=== PATIENT | female | born 1945 | race Caucasian/White ===

== ENCOUNTER 2021-06-11 09:47 | Emergency (ER) | payer MEDICARE, OTHER ==
[2021-06-11] MEDS ORDERED: traMADol 50 MG Tab PO ONE (10:04)
[2021-06-11] MEDS ORDERED: Acetaminophen 500 MG Tab PO ONE (10:04)
[2021-06-11] MEDS ORDERED: Aspirin 81 MG Tab.Chew PO ONE (10:06)
[2021-06-11 10:10] VITALS: PULSE 65
[2021-06-11] MEDS ORDERED: Nitroglycerin 0.4 MG Tab.SL SL PRN (10:40)
[2021-06-11] MEDS ORDERED: Sodium Chloride 0.9% 1,000 ML IV SCH (10:45)
[2021-06-11] MEDS ORDERED: Ticagrelor 90 MG Tab PO ONE (10:49)
[2021-06-11 10:57] VITALS: BP 170/78
[2021-06-11] MEDS ORDERED: Nitroglycerin 2% Oint 1 GM UD Packet TOP ONE (11:35)
[2021-06-11] MEDS ORDERED: Morphine 2 MG/ML SYRINGE IVPUSH ONE ×2 (12:03→13:02)
[2021-06-11] MEDS ORDERED: Heparin Sodium 5,000 Units/ML Vial IVPUSH ONE (12:47)
[2021-06-11] MEDS ORDERED: Heparin Sodium/0.45% NaCl 25,000 UNITS/500 ML BAG IV SCH ×2 (13:00→13:15)
[2021-06-11] MEDS ORDERED: Nitroglycerin/D5W 25 MG/250 ML BOTTLE IV SCH (14:15)
== END 2021-06-11 14:30 ==
LOC: FB.ED 09:47
DX: I21.4 Non-ST elevation (NSTEMI) myocardial infarction (principal); E78.00 Pure hypercholesterolemia, unspecified; E10.9 Type 1 diabetes mellitus without complications; I10 Essential (primary) hypertension; I25.10 Atherosclerotic heart disease of native coronary artery without angina pectoris; Z88.0 Allergy status to penicillin; Z88.8 Allergy status to other drugs, medicaments and biological substances; Z79.82 Long term (current) use of aspirin; Z79.899 Other long term (current) drug therapy
CPT/HCPCS: 36415; 80048; 84484; 85027; 93005; 96365; 96375; 96376; 99285; A9270; J1644; J2270; J3490; J7030; 93010

== ENCOUNTER 2023-02-04 10:12 | Inpatient (IN) | payer MEDICARE, OTHER ==
[2023-02-04] MEDS ORDERED: Sodium Chloride 0.9% 10 ML Syringe FLUSH PRN (10:33)
[2023-02-04 11:06] LABS: BASOPHILS PERCENT AUTO 0.6 % (0.2-1.5); EOSINOPHILS ABSOLUTE AUTO 0.5 x10-3/uL (0.0-0.8); EOSINOPHILS PERCENT AUTO 7.1 % (0.6-8.1); HEMATOCRIT 34.2 % (34.2-48.2); HEMOGLOBIN 11.6 g/dL (11.4-15.5); LYMPHOCYTES ABSOLUTE AUTO 1.3 x10-3/uL (1.0-4.4); LYMPHOCYTES PERCENT AUTO 18.2 % (18.4-52.1); MEAN CORPUSCULAR HEMOGLOBIN 30.9 pg (23.9-33.9); MEAN CORPUSCULAR HGB CONC 33.8 g/dL (31.9-34.8); MEAN CORPUSCULAR VOLUME 91.4 fL (76.7-100.5); MEAN PLATELET VOLUME 9.9 fL (7.1-12.4); MONOCYTES ABSOLUTE AUTO 0.8 x10-3/uL (0.3-1.0); MONOCYTES PERCENT AUTO 11.3 % (4.4-15.7); NEUTROPHILS ABSOLUTE AUTO 4.6 x10-3/uL (1.5-6.3); NEUTROPHILS PERCENT AUTO 62.8 % (30.8-76.2); PLATELET COUNT,PLT 211 x10(3)uL (151-488); RED BLOOD CELL COUNT 3.74 x10(6)uL (3.60-5.20); RED CELL DISTRIBUTION WIDTH 14.4 % (12.3-16.5); WHITE BLOOD CELL COUNT,WBC 7.4 x10-3/uL (3.0-10.3)
[2023-02-04 11:08] LABS: BLOOD UREA NITROGEN,BUN 29 mg/dL (7-18); BUN/CREATININE RATIO 20.7 (9-20); CALCIUM 10.1 mg/dL (8.6-10.2); CARBON DIOXIDE,CO2 30 mmol/L (21-32); CHLORIDE,CL 99 mmol/L (100-110); CREATININE 1.4 mg/dL (0.55-1.02); ESTIMATED GFR 38 mL/min (>60); GLUCOSE RANDOM 190 mg/dL (80-116); POTASSIUM,K 3.6 mmol/L (3.5-5.3); SODIUM,NA 136 mmol/L (135-145)
[2023-02-04 11:14] LABS: A/G RATIO 0.8; ALANINE AMINOTRANSFERASE,ALT 75 U/L (12-36); ALBUMIN 3.4 g/dL (3.2-4.6); ALKALINE PHOSPHATASE 167 IU/L (56-112); ASPARTATE AMNIOTRANSFERASE,AST 58 IU/L (5-25); BILIRUBIN TOTAL 0.6 mg/dL (0.1-1.3); MAGNESIUM 1.7 mg/dL (1.8-2.5); PROTEIN TOTAL,TP 7.5 g/dL (6.0-8.0)
[2023-02-04 11:21] LABS: C-REACTIVE PROTEIN 0.2 mg/dL (<0.33)
[2023-02-04 11:38] LABS: BILIRUBIN,URINE NEGATIVE (NEGATIVE); GLUCOSE,URINE NORMAL (NORMAL); KETONES,URINE NEGATIVE (NEGATIVE); LEUKOCYTE ESTERASE,URINE SMALL (NEGATIVE); NITRITE,URINE NEGATIVE (NEGATIVE); OCCULT BLOOD,URINE NEGATIVE (NEGATIVE); PROTEIN,URINE NEGATIVE (NEGATIVE); UROBILINOGEN,URINE NORMAL (NEGATIVE)
[2023-02-04 11:43] LABS: APPEARANCE,URINE CLEAR (CLEAR); BACTERIA,URINE FEW (NS); COLOR,URINE YELLOW (YELLOW); RBC,URINE 0-5 (0-5); SQUAMOUS EPITHELIAL CELLS,UR FEW (NS,R,O); WBC,URINE 0-5 (0-5)
[2023-02-04] MEDS ORDERED: Sodium Chloride 0.9% 500 ML IV ONE (14:37)
[2023-02-04] MEDS ORDERED: traMADol 50 MG Tab PO ONE (14:38)
[2023-02-04] MEDS ORDERED: Iopamidol 755 Mg/ML 100 ML Bottle IV SCH (16:00)
[2023-02-04] MEDS ORDERED: Ondansetron 4 MG Tab.DIS PO PRN (19:19)
[2023-02-04] MEDS ORDERED: Rivaroxaban 15 MG Tab PO SCH (20:00)
[2023-02-04] MEDS ORDERED: Glucagon,Human Recombinant 1 MG Vial IM PRN (23:51)
[2023-02-04] MEDS ORDERED: 50% Dextrose in Water 50 ML Syringe IVPUSH PRN (23:51)
[2023-02-05] MEDS ORDERED: Insulin Lispro 100 Unit/ML 3 ML KwikPen SUBCUT ONE (00:11)
[2023-02-05] MEDS ORDERED: Insulin Glargine,Human Rec. Analog 100 Units/ML 3 ML Pen SUBCUT ONE (00:11)
[2023-02-05] MEDS: Insulin Lispro 100 Unit/ML 3 ML KwikPen SUBCUT SCH ×4 (00:12→17:47)
[2023-02-05] MEDS: Insulin Glargine,Human Rec. Analog 100 Units/ML 3 ML Pen SUBCUT SCH ×3 (00:13→20:55)
[2023-02-05] MEDS: traMADol 50 MG Tab PO PRN ×4 (00:15→20:54)
[2023-02-05 07:11] LABS: BASOPHILS ABSOLUTE AUTO 0.1 x10-3/uL (0.0-0.1); EOSINOPHILS ABSOLUTE AUTO 0.6 x10-3/uL (0.0-0.8); EOSINOPHILS PERCENT AUTO 8.3 % (0.6-8.1); HEMATOCRIT 32.2 % (34.2-48.2); HEMOGLOBIN 10.9 g/dL (11.4-15.5); LYMPHOCYTES ABSOLUTE AUTO 1.3 x10-3/uL (1.0-4.4); LYMPHOCYTES PERCENT AUTO 19.9 % (18.4-52.1); MEAN CORPUSCULAR HGB CONC 33.8 g/dL (31.9-34.8); MEAN CORPUSCULAR VOLUME 91.7 fL (76.7-100.5); MEAN PLATELET VOLUME 9.4 fL (7.1-12.4); MONOCYTES ABSOLUTE AUTO 0.9 x10-3/uL (0.3-1.0); NEUTROPHILS ABSOLUTE AUTO 3.9 x10-3/uL (1.5-6.3); NEUTROPHILS PERCENT AUTO 57.8 % (30.8-76.2); PLATELET COUNT,PLT 193 x10(3)uL (151-488); RED BLOOD CELL COUNT 3.51 x10(6)uL (3.60-5.20); RED CELL DISTRIBUTION WIDTH 14.6 % (12.3-16.5); WHITE BLOOD CELL COUNT,WBC 6.8 x10-3/uL (3.0-10.3)
[2023-02-05 07:22] LABS: A/G RATIO 0.8; ALANINE AMINOTRANSFERASE,ALT 66 U/L (12-36); ALBUMIN 2.9 g/dL (3.2-4.6); ALKALINE PHOSPHATASE 146 IU/L (56-112); ASPARTATE AMNIOTRANSFERASE,AST 46 IU/L (5-25); BILIRUBIN TOTAL 0.5 mg/dL (0.1-1.3); BLOOD UREA NITROGEN,BUN 26 mg/dL (7-18); BUN/CREATININE RATIO 17.3 (9-20); CALCIUM 9.6 mg/dL (8.6-10.2); CARBON DIOXIDE,CO2 34 mmol/L (21-32); CHLORIDE,CL 102 mmol/L (100-110); CREATININE 1.5 mg/dL (0.55-1.02); EST CRCL DRUG DOSING (CG) 24.05 mL/min; ESTIMATED GFR 35 mL/min (>60); GLUCOSE RANDOM 97 mg/dL (80-116); POTASSIUM,K 3.7 mmol/L (3.5-5.3); PROTEIN TOTAL,TP 6.6 g/dL (6.0-8.0); SODIUM,NA 139 mmol/L (135-145)
[2023-02-05] MEDS ORDERED: 50% Dextrose in Water 50 ML Syringe IVPUSH PRN (09:14)
[2023-02-05] MEDS ORDERED: Nitroglycerin 0.4 MG Tab.SL SL PRN (09:14)
[2023-02-05] MEDS ORDERED: Glucagon,Human Recombinant 1 MG Vial IM PRN (09:14)
[2023-02-05] MEDS ORDERED: ALPHA LIPOIC ACID 600 MG PO SCH (09:15)
[2023-02-05] MEDS: Carvedilol 3.125 MG Tab PO SCH ×2 (10:15→21:20)
[2023-02-05] MEDS: Cyanocobalamin (Vitamin B12) 100 MCG Tab PO SCH (10:16)
[2023-02-05] MEDS: Clopidogrel 75 MG Tab PO SCH (10:16)
[2023-02-05] MEDS: Furosemide 40 MG Tab PO SCH (10:16)
[2023-02-05] MEDS: Magnesium Oxide 400 MG Tab PO SCH (10:17)
[2023-02-05] MEDS: Levothyroxine 112 MCG Tab PO SCH (10:17)
[2023-02-05] MEDS: Aspirin 81 MG Tab.EC PO SCH (10:18)
[2023-02-05] MEDS: Isosorbide Mononitrate 30 MG Tab.ER PO SCH (10:18)
[2023-02-05] MEDS: Vitamin B6-pyridOXINE 100 MG Tab PO SCH (10:37)
[2023-02-05] MEDS: Nitrofurantoin Monohydrate/Macrocrystalline 100 MG Cap PO SCH ×2 (10:38→20:53)
[2023-02-05] MEDS ORDERED: Insulin Lispro 100 Unit/ML 3 ML KwikPen SUBCUT SCH (12:00)
[2023-02-05] MEDS: Cholecalciferol (Vitamin D3) 25 MCG Tab PO SCH (17:47)
[2023-02-05] MEDS: Enoxaparin 30 MG/0.3 ML Syringe SUBCUT SCH (20:45)
[2023-02-05] MEDS: Rosuvastatin 20 MG Tab PO SCH (20:53)
[2023-02-05] MEDS ORDERED: Insulin Glargine,Human Rec. Analog 100 Units/ML 3 ML Pen SUBCUT SCH (21:00)
[2023-02-05] MEDS: Losartan 25 MG Tab PO SCH (21:20)
[2023-02-06] MEDS: Levothyroxine 112 MCG Tab PO SCH (05:47)
[2023-02-06] MEDS: Insulin Lispro 100 Unit/ML 3 ML KwikPen SUBCUT SCH ×3 (07:49→18:15)
[2023-02-06] MEDS: Carvedilol 3.125 MG Tab PO SCH ×2 (08:52→20:52)
[2023-02-06] MEDS: Aspirin 81 MG Tab.EC PO SCH (08:53)
[2023-02-06] MEDS: Isosorbide Mononitrate 30 MG Tab.ER PO SCH (08:53)
[2023-02-06] MEDS: Furosemide 40 MG Tab PO SCH (08:53)
[2023-02-06] MEDS: Cyanocobalamin (Vitamin B12) 100 MCG Tab PO SCH (08:54)
[2023-02-06] MEDS: Vitamin B6-pyridOXINE 100 MG Tab PO SCH (08:54)
[2023-02-06] MEDS: Magnesium Oxide 400 MG Tab PO SCH (08:54)
[2023-02-06] MEDS: Clopidogrel 75 MG Tab PO SCH (08:54)
[2023-02-06] MEDS: Insulin Glargine,Human Rec. Analog 100 Units/ML 3 ML Pen SUBCUT SCH ×2 (09:03→20:53)
[2023-02-06] MEDS: Nitrofurantoin Monohydrate/Macrocrystalline 100 MG Cap PO SCH ×2 (09:05→20:47)
[2023-02-06] MEDS: traMADol 50 MG Tab PO PRN (10:16)
[2023-02-06] MEDS ORDERED: Magnesium Hydroxide 400 MG/5 ML Susp 30 ML Cup PO PRN (14:29)
[2023-02-06] MEDS ORDERED: Polyethylene Glycol 3350 Powder 17 GM Packet PO PRN (16:51)
[2023-02-06] MEDS ORDERED: traMADol 50 MG Tab PO SCH (17:00)
[2023-02-06] MEDS: Cholecalciferol (Vitamin D3) 25 MCG Tab PO SCH (18:18)
[2023-02-06] MEDS ORDERED: Acetaminophen/Codeine 300-30 MG Tab PO PRN (18:55)
[2023-02-06] MEDS: Enoxaparin 30 MG/0.3 ML Syringe SUBCUT SCH (20:47)
[2023-02-06] MEDS: Rosuvastatin 20 MG Tab PO SCH (20:48)
[2023-02-06] MEDS: Losartan 25 MG Tab PO SCH (20:52)
[2023-02-07] MEDS ORDERED: Levothyroxine 112 MCG Tab PO SCH (06:00)
[2023-02-07] MEDS: Insulin Lispro 100 Unit/ML 3 ML KwikPen SUBCUT SCH ×3 (09:42→18:12)
[2023-02-07] MEDS: Furosemide 40 MG Tab PO SCH (09:43)
[2023-02-07] MEDS: Carvedilol 3.125 MG Tab PO SCH (09:43)
[2023-02-07] MEDS: Cyanocobalamin (Vitamin B12) 100 MCG Tab PO SCH (09:47)
[2023-02-07] MEDS: Vitamin B6-pyridOXINE 100 MG Tab PO SCH (09:47)
[2023-02-07] MEDS: Insulin Glargine,Human Rec. Analog 100 Units/ML 3 ML Pen SUBCUT SCH ×2 (09:47→20:09)
[2023-02-07] MEDS: Magnesium Oxide 400 MG Tab PO SCH (09:47)
[2023-02-07] MEDS: Clopidogrel 75 MG Tab PO SCH (09:47)
[2023-02-07] MEDS: Isosorbide Mononitrate 30 MG Tab.ER PO SCH (09:48)
[2023-02-07] MEDS: Aspirin 81 MG Tab.EC PO SCH (09:49)
[2023-02-07] MEDS: Acetaminophen 500 MG Tab PO SCH ×3 (10:05→20:13)
[2023-02-07] MEDS: traMADol 50 MG Tab PO PRN (13:10)
[2023-02-07] MEDS: Cholecalciferol (Vitamin D3) 25 MCG Tab PO SCH (18:13)
[2023-02-07] MEDS: Losartan 25 MG Tab PO SCH (20:13)
[2023-02-07] MEDS: Rosuvastatin 20 MG Tab PO SCH (20:13)
[2023-02-07] MEDS: Enoxaparin 30 MG/0.3 ML Syringe SUBCUT SCH (20:13)
[2023-02-08] MEDS: Levothyroxine 112 MCG Tab PO SCH (06:58)
[2023-02-08] MEDS: Insulin Lispro 100 Unit/ML 3 ML KwikPen SUBCUT SCH ×3 (09:18→17:50)
[2023-02-08] MEDS: Vitamin B6-pyridOXINE 100 MG Tab PO SCH (09:24)
[2023-02-08] MEDS: Acetaminophen 500 MG Tab PO SCH ×3 (09:24→20:12)
[2023-02-08] MEDS: Cyanocobalamin (Vitamin B12) 100 MCG Tab PO SCH (09:24)
[2023-02-08] MEDS: Furosemide 40 MG Tab PO SCH (09:25)
[2023-02-08] MEDS: Clopidogrel 75 MG Tab PO SCH (09:25)
[2023-02-08] MEDS: Magnesium Oxide 400 MG Tab PO SCH (09:25)
[2023-02-08] MEDS: Insulin Glargine,Human Rec. Analog 100 Units/ML 3 ML Pen SUBCUT SCH ×2 (09:26→20:08)
[2023-02-08] MEDS: Aspirin 81 MG Tab.EC PO SCH (09:27)
[2023-02-08] MEDS: Carvedilol 3.125 MG Tab PO SCH ×2 (09:27→20:06)
[2023-02-08] MEDS: Isosorbide Mononitrate 30 MG Tab.ER PO SCH (09:27)
[2023-02-08] MEDS: traMADol 50 MG Tab PO PRN (09:29)
[2023-02-08] MEDS: Cholecalciferol (Vitamin D3) 25 MCG Tab PO SCH (17:51)
[2023-02-08] MEDS: Losartan 25 MG Tab PO SCH (20:06)
[2023-02-08] MEDS: Enoxaparin 30 MG/0.3 ML Syringe SUBCUT SCH (20:06)
[2023-02-08] MEDS: Rosuvastatin 20 MG Tab PO SCH (20:07)
[2023-02-09] MEDS: Levothyroxine 112 MCG Tab PO SCH (06:16)
[2023-02-09] MEDS: traMADol 50 MG Tab PO PRN (06:22)
[2023-02-09] MEDS: Insulin Lispro 100 Unit/ML 3 ML KwikPen SUBCUT SCH (08:25)
[2023-02-09] MEDS: Insulin Glargine,Human Rec. Analog 100 Units/ML 3 ML Pen SUBCUT SCH (08:26)
[2023-02-09] MEDS: Vitamin B6-pyridOXINE 100 MG Tab PO SCH (08:27)
[2023-02-09] MEDS: Aspirin 81 MG Tab.EC PO SCH (08:27)
[2023-02-09] MEDS: Cyanocobalamin (Vitamin B12) 100 MCG Tab PO SCH (08:27)
[2023-02-09] MEDS: Clopidogrel 75 MG Tab PO SCH (08:28)
[2023-02-09] MEDS: Carvedilol 3.125 MG Tab PO SCH (08:28)
[2023-02-09] MEDS: Magnesium Oxide 400 MG Tab PO SCH (08:28)
[2023-02-09] MEDS: Isosorbide Mononitrate 30 MG Tab.ER PO SCH (08:28)
[2023-02-09] MEDS: Furosemide 40 MG Tab PO SCH (08:28)
[2023-02-09 08:30] VITALS: BP 132/44; PULSE 67
[2023-02-09] MEDS: Acetaminophen 500 MG Tab PO SCH (08:45)
== END 2023-02-09 09:00 | disposition swing bed (61) | DRG 556 ==
LOC: FB.ED 10:12 → FB.MS 18:04 → OBSVTOIN 19:19
PROVIDERS: ADMIT Family Medicine; ATTEND Family Medicine
DX: M25.571 Pain in right ankle and joints of right foot (principal); N39.0 Urinary tract infection, site not specified; M79.604 Pain in right leg; Z51.5 Encounter for palliative care; R53.1 Weakness; Z74.1 Need for assistance with personal care; Z74.09 Other reduced mobility; I25.10 Atherosclerotic heart disease of native coronary artery without angina pectoris; M79.89 Other specified soft tissue disorders; R06.09 Other forms of dyspnea; R11.2 Nausea with vomiting, unspecified; M48.50XD Collapsed vertebra, not elsewhere classified, site unspecified, subsequent encounter for fracture with routine healing; M48.00 Spinal stenosis, site unspecified; Z88.0 Allergy status to penicillin; Z88.8 Allergy status to other drugs, medicaments and biological substances; Z91.012 Allergy to eggs; E11.9 Type 2 diabetes mellitus without complications; I10 Essential (primary) hypertension; E78.00 Pure hypercholesterolemia, unspecified; Z79.02 Long term (current) use of antithrombotics/antiplatelets; Z85.828 Personal history of other malignant neoplasm of skin; Z90.49 Acquired absence of other specified parts of digestive tract; Z90.710 Acquired absence of both cervix and uterus; Z79.4 Long term (current) use of insulin; Z79.82 Long term (current) use of aspirin; Z79.899 Other long term (current) drug therapy
CPT/HCPCS: 36415; 71275; 73590-RT; 73610-RT; 73630-RT; 80053; 81001; 82947; 83735; 83880; 84484; 85025; 85379; 86140; 93005; 93010; 93970; 97162-GP; 97165-GO; 99222; 99232; 99238; 99285; A9270-GY; J1650; J1815; J1815-GY; J3490; J7040; Q0162; Q9967

== ENCOUNTER 2023-02-09 09:00 | Inpatient (IN) | payer MEDICARE, OTHER ==
[2023-02-09] MEDS ORDERED: 50% Dextrose in Water 50 ML Syringe IVPUSH PRN (09:22)
[2023-02-09] MEDS ORDERED: Nitroglycerin 0.4 MG Tab.SL SL PRN ×2 (09:22→20:28)
[2023-02-09] MEDS ORDERED: Glucagon,Human Recombinant 1 MG Vial IM PRN ×2 (09:22)
[2023-02-09] MEDS ORDERED: Iopamidol 755 Mg/ML 100 ML Bottle IV SCH (09:30)
[2023-02-09] MEDS: Insulin Lispro 100 Unit/ML 3 ML KwikPen SUBCUT SCH ×2 (11:45→18:06)
[2023-02-09] MEDS: Acetaminophen 500 MG Tab PO SCH ×2 (13:21→21:03)
[2023-02-09] MEDS: Cholecalciferol (Vitamin D3) 25 MCG Tab PO SCH (18:06)
[2023-02-09] MEDS: Sodium Chloride 0.9% 10 ML Syringe FLUSH PRN (20:15)
[2023-02-09] MEDS ORDERED: Aspirin 81 MG Tab.Chew PO SCH (20:30)
[2023-02-09 20:43] LABS: BASOPHILS ABSOLUTE AUTO 0.1 x10-3/uL (0.0-0.1); BASOPHILS PERCENT AUTO 1.1 % (0.2-1.5); EOSINOPHILS ABSOLUTE AUTO 0.7 x10-3/uL (0.0-0.8); EOSINOPHILS PERCENT AUTO 12.1 % (0.6-8.1); HEMATOCRIT 30.5 % (34.2-48.2); HEMOGLOBIN 10.3 g/dL (11.4-15.5); LYMPHOCYTES ABSOLUTE AUTO 1.5 x10-3/uL (1.0-4.4); LYMPHOCYTES PERCENT AUTO 25.3 % (18.4-52.1); MEAN CORPUSCULAR HEMOGLOBIN 31.1 pg (23.9-33.9); MEAN CORPUSCULAR HGB CONC 33.7 g/dL (31.9-34.8); MEAN CORPUSCULAR VOLUME 92.1 fL (76.7-100.5); MEAN PLATELET VOLUME 9.8 fL (7.1-12.4); MONOCYTES ABSOLUTE AUTO 0.6 x10-3/uL (0.3-1.0); MONOCYTES PERCENT AUTO 10.4 % (4.4-15.7); NEUTROPHILS PERCENT AUTO 51.1 % (30.8-76.2); PLATELET COUNT,PLT 164 x10(3)uL (151-488); RED BLOOD CELL COUNT 3.31 x10(6)uL (3.60-5.20); RED CELL DISTRIBUTION WIDTH 14.4 % (12.3-16.5); WHITE BLOOD CELL COUNT,WBC 5.9 x10-3/uL (3.0-10.3)
[2023-02-09] MEDS ORDERED: Pantoprazole 40 MG Tab.CR PO STA (20:47)
[2023-02-09 20:58] LABS: INR 1.03 (1.00-1.24); PROTHROMBIN TIME 10.6 sec (9.0-11.1); PTT,PARTIAL THROMBOPLSTIN TIME 27.4 SECONDS (24.4-33.2)
[2023-02-09] MEDS: Carvedilol 3.125 MG Tab PO SCH (20:58)
[2023-02-09] MEDS: Rosuvastatin 20 MG Tab PO SCH (20:58)
[2023-02-09] MEDS: Insulin Glargine,Human Rec. Analog 100 Units/ML 3 ML Pen SUBCUT SCH (20:59)
[2023-02-09 21:01] LABS: A/G RATIO 0.8; ALANINE AMINOTRANSFERASE,ALT 45 U/L (12-36); ALBUMIN 2.8 g/dL (3.2-4.6); ALKALINE PHOSPHATASE 165 IU/L (56-112); ASPARTATE AMNIOTRANSFERASE,AST 28 IU/L (5-25); BILIRUBIN TOTAL 0.4 mg/dL (0.1-1.3); BLOOD UREA NITROGEN,BUN 43 mg/dL (7-18); BUN/CREATININE RATIO 19.5 (9-20); CALCIUM 9.2 mg/dL (8.6-10.2); CARBON DIOXIDE,CO2 34 mmol/L (21-32); CHLORIDE,CL 96 mmol/L (100-110); ESTIMATED GFR 22 mL/min (>60); GLUCOSE RANDOM 319 mg/dL (80-116); POTASSIUM,K 4.6 mmol/L (3.5-5.3); PROTEIN TOTAL,TP 6.5 g/dL (6.0-8.0); SODIUM,NA 132 mmol/L (135-145)
[2023-02-09 21:07] LABS: CREATININE 2.2 mg/dL (0.55-1.02)
[2023-02-09] MEDS: traMADol 50 MG Tab PO PRN (21:14)
[2023-02-09] MEDS ORDERED: Sodium Chloride 0.9% 1,000 ML IV ONE (21:36)
[2023-02-10] MEDS: traMADol 50 MG Tab PO PRN ×2 (04:37→22:54)
[2023-02-10] MEDS: Pantoprazole 40 MG Tab.CR PO SCH (05:04)
[2023-02-10] MEDS: Levothyroxine 112 MCG Tab PO SCH (05:04)
[2023-02-10] MEDS: Insulin Lispro 100 Unit/ML 3 ML KwikPen SUBCUT SCH ×3 (08:06→17:56)
[2023-02-10] MEDS: Insulin Glargine,Human Rec. Analog 100 Units/ML 3 ML Pen SUBCUT SCH ×2 (08:07→20:36)
[2023-02-10] MEDS: Magnesium Oxide 400 MG Tab PO SCH (08:14)
[2023-02-10] MEDS: Carvedilol 3.125 MG Tab PO SCH ×2 (08:14→20:41)
[2023-02-10] MEDS: Acetaminophen 500 MG Tab PO SCH ×3 (08:15→20:41)
[2023-02-10] MEDS: Vitamin B6-pyridOXINE 100 MG Tab PO SCH (08:15)
[2023-02-10] MEDS: Clopidogrel 75 MG Tab PO SCH (08:15)
[2023-02-10] MEDS: Isosorbide Mononitrate 30 MG Tab.ER PO SCH (08:16)
[2023-02-10] MEDS ORDERED: Furosemide 40 MG Tab PO SCH (09:00)
[2023-02-10] MEDS ORDERED: ALPHA LIPOIC ACID 600 MG PO SCH (09:00)
[2023-02-10] MEDS ORDERED: Aspirin 81 MG Tab.EC PO SCH (09:00)
[2023-02-10] MEDS: Gabapentin 100 MG Cap PO SCH ×3 (10:52→20:44)
[2023-02-10] MEDS: Cholecalciferol (Vitamin D3) 25 MCG Tab PO SCH (17:55)
[2023-02-10] MEDS: Rosuvastatin 20 MG Tab PO SCH (20:41)
[2023-02-10] MEDS: Losartan 25 MG Tab PO SCH (22:00)
[2023-02-11] MEDS: Levothyroxine 112 MCG Tab PO SCH (05:45)
[2023-02-11] MEDS: Pantoprazole 40 MG Tab.CR PO SCH (05:45)
[2023-02-11 06:59] LABS: A/G RATIO 0.7; ALANINE AMINOTRANSFERASE,ALT 42 U/L (12-36); ALBUMIN 2.6 g/dL (3.2-4.6); ALKALINE PHOSPHATASE 149 IU/L (56-112); ASPARTATE AMNIOTRANSFERASE,AST 29 IU/L (5-25); BILIRUBIN TOTAL 0.4 mg/dL (0.1-1.3); BLOOD UREA NITROGEN,BUN 32 mg/dL (7-18); CALCIUM 9.2 mg/dL (8.6-10.2); CARBON DIOXIDE,CO2 32 mmol/L (21-32); CHLORIDE,CL 103 mmol/L (100-110); CREATININE 1.6 mg/dL (0.55-1.02); EST CRCL DRUG DOSING (CG) 22.55 mL/min; ESTIMATED GFR 33 mL/min (>60); GLUCOSE RANDOM 171 mg/dL (80-116); POTASSIUM,K 4.5 mmol/L (3.5-5.3); PROTEIN TOTAL,TP 6.2 g/dL (6.0-8.0); SODIUM,NA 137 mmol/L (135-145)
[2023-02-11] MEDS: Magnesium Oxide 400 MG Tab PO SCH (08:13)
[2023-02-11] MEDS: Carvedilol 3.125 MG Tab PO SCH ×2 (08:13→20:25)
[2023-02-11] MEDS: Isosorbide Mononitrate 30 MG Tab.ER PO SCH (08:13)
[2023-02-11] MEDS: Acetaminophen 500 MG Tab PO SCH ×3 (08:13→20:24)
[2023-02-11] MEDS: Clopidogrel 75 MG Tab PO SCH (08:13)
[2023-02-11] MEDS: Gabapentin 100 MG Cap PO SCH ×3 (08:13→20:25)
[2023-02-11] MEDS: Insulin Lispro 100 Unit/ML 3 ML KwikPen SUBCUT SCH ×3 (08:14→18:01)
[2023-02-11] MEDS: Vitamin B6-pyridOXINE 100 MG Tab PO SCH (08:14)
[2023-02-11] MEDS: Insulin Glargine,Human Rec. Analog 100 Units/ML 3 ML Pen SUBCUT SCH ×2 (08:15→20:25)
[2023-02-11] MEDS: Sodium Chloride 0.9% 10 ML Syringe FLUSH PRN (08:26)
[2023-02-11] MEDS: Cholecalciferol (Vitamin D3) 25 MCG Tab PO SCH (18:02)
[2023-02-11] MEDS: Rosuvastatin 20 MG Tab PO SCH (20:24)
[2023-02-11] MEDS: Losartan 25 MG Tab PO SCH (20:24)
[2023-02-12] MEDS: Levothyroxine 112 MCG Tab PO SCH (06:15)
[2023-02-12] MEDS: Pantoprazole 40 MG Tab.CR PO SCH (06:16)
[2023-02-12] MEDS: traMADol 50 MG Tab PO PRN (06:21)
[2023-02-12] MEDS: Insulin Lispro 100 Unit/ML 3 ML KwikPen SUBCUT SCH ×3 (08:30→17:58)
[2023-02-12] MEDS: Acetaminophen 500 MG Tab PO SCH ×3 (08:31→21:25)
[2023-02-12] MEDS: Clopidogrel 75 MG Tab PO SCH (08:33)
[2023-02-12] MEDS: Vitamin B6-pyridOXINE 100 MG Tab PO SCH (08:33)
[2023-02-12] MEDS: Insulin Glargine,Human Rec. Analog 100 Units/ML 3 ML Pen SUBCUT SCH ×2 (08:33→21:28)
[2023-02-12] MEDS: Magnesium Oxide 400 MG Tab PO SCH (08:33)
[2023-02-12] MEDS ORDERED: Furosemide 20 MG Tab PO SCH (09:00)
[2023-02-12] MEDS: Isosorbide Mononitrate 30 MG Tab.ER PO SCH (10:04)
[2023-02-12] MEDS: Carvedilol 3.125 MG Tab PO SCH ×2 (10:05→21:27)
[2023-02-12] MEDS: Furosemide 40 MG Tab PO SCH (10:32)
[2023-02-12] MEDS: Gabapentin 100 MG Cap PO SCH (10:35)
[2023-02-12] MEDS: Cholecalciferol (Vitamin D3) 25 MCG Tab PO SCH (18:50)
[2023-02-12] MEDS: Rosuvastatin 20 MG Tab PO SCH (21:27)
[2023-02-12] MEDS: Losartan 25 MG Tab PO SCH (21:27)
[2023-02-13] MEDS: traMADol 50 MG Tab PO PRN (02:23)
[2023-02-13] MEDS: Levothyroxine 112 MCG Tab PO SCH (06:27)
[2023-02-13] MEDS: Pantoprazole 40 MG Tab.CR PO SCH (06:27)
[2023-02-13] MEDS: Insulin Lispro 100 Unit/ML 3 ML KwikPen SUBCUT SCH ×3 (09:11→18:03)
[2023-02-13] MEDS: Insulin Glargine,Human Rec. Analog 100 Units/ML 3 ML Pen SUBCUT SCH ×2 (09:13→20:31)
[2023-02-13] MEDS: Vitamin B6-pyridOXINE 100 MG Tab PO SCH (09:14)
[2023-02-13] MEDS: Magnesium Oxide 400 MG Tab PO SCH (09:14)
[2023-02-13] MEDS: Clopidogrel 75 MG Tab PO SCH (09:14)
[2023-02-13] MEDS: Isosorbide Mononitrate 30 MG Tab.ER PO SCH (09:14)
[2023-02-13] MEDS: Acetaminophen 500 MG Tab PO SCH ×3 (09:15→20:35)
[2023-02-13] MEDS: Carvedilol 3.125 MG Tab PO SCH ×2 (09:15→20:34)
[2023-02-13] MEDS: Furosemide 40 MG Tab PO SCH (09:27)
[2023-02-13] MEDS: Cholecalciferol (Vitamin D3) 25 MCG Tab PO SCH (18:04)
[2023-02-13] MEDS: Rosuvastatin 20 MG Tab PO SCH (20:35)
[2023-02-13] MEDS: Losartan 25 MG Tab PO SCH (20:35)
[2023-02-14] MEDS: traMADol 50 MG Tab PO PRN ×2 (04:06→21:14)
[2023-02-14] MEDS: Levothyroxine 112 MCG Tab PO SCH (05:06)
[2023-02-14] MEDS: Pantoprazole 40 MG Tab.CR PO SCH (05:06)
[2023-02-14] MEDS: Insulin Glargine,Human Rec. Analog 100 Units/ML 3 ML Pen SUBCUT SCH ×2 (09:01→21:15)
[2023-02-14] MEDS: Insulin Lispro 100 Unit/ML 3 ML KwikPen SUBCUT SCH ×3 (09:02→18:36)
[2023-02-14] MEDS: Acetaminophen 500 MG Tab PO SCH ×3 (09:04→21:12)
[2023-02-14] MEDS: Clopidogrel 75 MG Tab PO SCH (09:04)
[2023-02-14] MEDS: Carvedilol 3.125 MG Tab PO SCH ×2 (09:05→21:11)
[2023-02-14] MEDS: Furosemide 40 MG Tab PO SCH (09:05)
[2023-02-14] MEDS: Vitamin B6-pyridOXINE 100 MG Tab PO SCH (09:05)
[2023-02-14] MEDS: Isosorbide Mononitrate 30 MG Tab.ER PO SCH (09:06)
[2023-02-14] MEDS: Magnesium Oxide 400 MG Tab PO SCH (09:06)
[2023-02-14] MEDS: Cholecalciferol (Vitamin D3) 25 MCG Tab PO SCH (18:39)
[2023-02-14] MEDS ORDERED: 50% Dextrose in Water 50 ML Syringe IVPUSH PRN (20:16)
[2023-02-14] MEDS ORDERED: Glucagon,Human Recombinant 1 MG Vial IM PRN (20:16)
[2023-02-14] MEDS: Losartan 25 MG Tab PO SCH (21:12)
[2023-02-14] MEDS: Rosuvastatin 20 MG Tab PO SCH (21:12)
[2023-02-15] MEDS: Pantoprazole 40 MG Tab.CR PO SCH (06:26)
[2023-02-15] MEDS: Levothyroxine 112 MCG Tab PO SCH (06:26)
[2023-02-15] MEDS: Insulin Lispro 100 Unit/ML 3 ML KwikPen SUBCUT SCH ×3 (08:05→18:36)
[2023-02-15] MEDS: Insulin Glargine,Human Rec. Analog 100 Units/ML 3 ML Pen SUBCUT SCH ×2 (08:05→20:20)
[2023-02-15] MEDS: Isosorbide Mononitrate 30 MG Tab.ER PO SCH (08:09)
[2023-02-15] MEDS: Carvedilol 3.125 MG Tab PO SCH ×2 (08:09→20:17)
[2023-02-15] MEDS: Magnesium Oxide 400 MG Tab PO SCH (08:10)
[2023-02-15] MEDS: Furosemide 40 MG Tab PO SCH (08:10)
[2023-02-15] MEDS: Vitamin B6-pyridOXINE 100 MG Tab PO SCH (08:11)
[2023-02-15] MEDS: Clopidogrel 75 MG Tab PO SCH (08:11)
[2023-02-15] MEDS: Acetaminophen 500 MG Tab PO SCH ×3 (08:11→20:18)
[2023-02-15] MEDS: Cholecalciferol (Vitamin D3) 25 MCG Tab PO SCH (18:40)
[2023-02-15] MEDS: Losartan 25 MG Tab PO SCH (20:18)
[2023-02-15] MEDS: Rosuvastatin 20 MG Tab PO SCH (20:18)
[2023-02-15] MEDS: traMADol 50 MG Tab PO PRN (22:13)
[2023-02-16] MEDS: Levothyroxine 112 MCG Tab PO SCH (05:37)
[2023-02-16] MEDS: Pantoprazole 40 MG Tab.CR PO SCH (05:37)
[2023-02-16] MEDS: Insulin Lispro 100 Unit/ML 3 ML KwikPen SUBCUT SCH ×3 (08:30→18:03)
[2023-02-16] MEDS: Acetaminophen 500 MG Tab PO SCH ×3 (09:24→21:32)
[2023-02-16] MEDS: Isosorbide Mononitrate 30 MG Tab.ER PO SCH (09:24)
[2023-02-16] MEDS: Clopidogrel 75 MG Tab PO SCH (09:25)
[2023-02-16] MEDS: Vitamin B6-pyridOXINE 100 MG Tab PO SCH (09:25)
[2023-02-16] MEDS: Magnesium Oxide 400 MG Tab PO SCH (09:25)
[2023-02-16] MEDS: Furosemide 40 MG Tab PO SCH (09:25)
[2023-02-16] MEDS: Carvedilol 3.125 MG Tab PO SCH ×2 (09:26→21:32)
[2023-02-16] MEDS: Insulin Glargine,Human Rec. Analog 100 Units/ML 3 ML Pen SUBCUT SCH ×2 (09:27→21:39)
[2023-02-16] MEDS ORDERED: Bupivacaine 0.5% 10 ML SDV INJECT ONE (13:50)
[2023-02-16] MEDS ORDERED: Triamcinolone Acetonide 40 MG/ML 1 ML SDV IBURSA ONE (13:52)
[2023-02-16] MEDS ORDERED: Bupivacaine 0.5% 30 ML SDV INJECT ONE (14:00)
[2023-02-16] MEDS: Cholecalciferol (Vitamin D3) 25 MCG Tab PO SCH (18:05)
[2023-02-16] MEDS: Losartan 25 MG Tab PO SCH (21:32)
[2023-02-16] MEDS: Rosuvastatin 20 MG Tab PO SCH (21:32)
[2023-02-16] MEDS: traMADol 50 MG Tab PO PRN (23:10)
[2023-02-17] MEDS: Pantoprazole 40 MG Tab.CR PO SCH (06:22)
[2023-02-17] MEDS: Levothyroxine 112 MCG Tab PO SCH (06:22)
[2023-02-17] MEDS: traMADol 50 MG Tab PO PRN ×2 (08:09→20:07)
[2023-02-17] MEDS: Acetaminophen 500 MG Tab PO SCH ×3 (08:10→20:05)
[2023-02-17] MEDS: Insulin Lispro 100 Unit/ML 3 ML KwikPen SUBCUT SCH ×3 (08:10→17:48)
[2023-02-17] MEDS: Carvedilol 3.125 MG Tab PO SCH ×2 (08:10→20:05)
[2023-02-17] MEDS: Magnesium Oxide 400 MG Tab PO SCH (08:11)
[2023-02-17] MEDS: Furosemide 40 MG Tab PO SCH (08:11)
[2023-02-17] MEDS: Clopidogrel 75 MG Tab PO SCH (08:11)
[2023-02-17] MEDS: Isosorbide Mononitrate 30 MG Tab.ER PO SCH (08:11)
[2023-02-17] MEDS: Insulin Glargine,Human Rec. Analog 100 Units/ML 3 ML Pen SUBCUT SCH ×2 (08:12→20:15)
[2023-02-17] MEDS: Vitamin B6-pyridOXINE 100 MG Tab PO SCH (08:12)
[2023-02-17] MEDS: Cholecalciferol (Vitamin D3) 25 MCG Tab PO SCH (17:56)
[2023-02-17] MEDS: Losartan 25 MG Tab PO SCH (20:04)
[2023-02-17] MEDS: Rosuvastatin 20 MG Tab PO SCH (20:04)
[2023-02-18] MEDS: Pantoprazole 40 MG Tab.CR PO SCH (06:00)
[2023-02-18] MEDS: Levothyroxine 112 MCG Tab PO SCH (06:00)
[2023-02-18] MEDS: Insulin Lispro 100 Unit/ML 3 ML KwikPen SUBCUT SCH ×3 (07:50→18:02)
[2023-02-18] MEDS: traMADol 50 MG Tab PO PRN (08:50)
[2023-02-18] MEDS: Carvedilol 3.125 MG Tab PO SCH ×2 (09:35→20:14)
[2023-02-18] MEDS: Insulin Glargine,Human Rec. Analog 100 Units/ML 3 ML Pen SUBCUT SCH ×2 (09:37→20:17)
[2023-02-18] MEDS: Isosorbide Mononitrate 30 MG Tab.ER PO SCH (09:37)
[2023-02-18] MEDS: Furosemide 40 MG Tab PO SCH (09:38)
[2023-02-18] MEDS: Acetaminophen 500 MG Tab PO SCH ×3 (09:39→20:15)
[2023-02-18] MEDS: Magnesium Oxide 400 MG Tab PO SCH (09:39)
[2023-02-18] MEDS: Clopidogrel 75 MG Tab PO SCH (09:39)
[2023-02-18] MEDS: Vitamin B6-pyridOXINE 100 MG Tab PO SCH (09:41)
[2023-02-18] MEDS: Cholecalciferol (Vitamin D3) 25 MCG Tab PO SCH (18:01)
[2023-02-18] MEDS: Losartan 25 MG Tab PO SCH (20:15)
[2023-02-18] MEDS: Rosuvastatin 20 MG Tab PO SCH (20:15)
[2023-02-19] MEDS: Levothyroxine 112 MCG Tab PO SCH (06:10)
[2023-02-19] MEDS: Pantoprazole 40 MG Tab.CR PO SCH (06:10)
[2023-02-19] MEDS: traMADol 50 MG Tab PO PRN ×2 (06:16→20:55)
[2023-02-19] MEDS: Clopidogrel 75 MG Tab PO SCH (08:04)
[2023-02-19] MEDS: Carvedilol 3.125 MG Tab PO SCH ×2 (08:04→20:56)
[2023-02-19] MEDS: Isosorbide Mononitrate 30 MG Tab.ER PO SCH (08:05)
[2023-02-19] MEDS: Insulin Glargine,Human Rec. Analog 100 Units/ML 3 ML Pen SUBCUT SCH ×2 (08:05→20:56)
[2023-02-19] MEDS: Insulin Lispro 100 Unit/ML 3 ML KwikPen SUBCUT SCH ×3 (08:08→17:45)
[2023-02-19] MEDS: Acetaminophen 500 MG Tab PO SCH ×3 (08:09→20:53)
[2023-02-19] MEDS: Furosemide 40 MG Tab PO SCH (08:09)
[2023-02-19] MEDS: Magnesium Oxide 400 MG Tab PO SCH (08:09)
[2023-02-19] MEDS: Vitamin B6-pyridOXINE 100 MG Tab PO SCH (08:10)
[2023-02-19] MEDS: Polyethylene Glycol 3350 Powder 17 GM Packet PO PRN (08:22)
[2023-02-19] MEDS: Cholecalciferol (Vitamin D3) 25 MCG Tab PO SCH (17:45)
[2023-02-19] MEDS: Rosuvastatin 20 MG Tab PO SCH (20:55)
[2023-02-19] MEDS: Losartan 25 MG Tab PO SCH (20:56)
[2023-02-20] MEDS: Pantoprazole 40 MG Tab.CR PO SCH (06:31)
[2023-02-20] MEDS: Levothyroxine 112 MCG Tab PO SCH (06:32)
[2023-02-20] MEDS: Insulin Lispro 100 Unit/ML 3 ML KwikPen SUBCUT SCH ×3 (08:31→17:55)
[2023-02-20] MEDS: Insulin Glargine,Human Rec. Analog 100 Units/ML 3 ML Pen SUBCUT SCH ×2 (08:32→20:13)
[2023-02-20] MEDS: Carvedilol 3.125 MG Tab PO SCH ×2 (08:38→20:05)
[2023-02-20] MEDS: Isosorbide Mononitrate 30 MG Tab.ER PO SCH (08:38)
[2023-02-20] MEDS: Furosemide 40 MG Tab PO SCH (08:39)
[2023-02-20] MEDS: Magnesium Oxide 400 MG Tab PO SCH (08:39)
[2023-02-20] MEDS: Acetaminophen 500 MG Tab PO SCH ×3 (08:40→20:08)
[2023-02-20] MEDS: Clopidogrel 75 MG Tab PO SCH (08:40)
[2023-02-20] MEDS: Vitamin B6-pyridOXINE 100 MG Tab PO SCH (08:41)
[2023-02-20] MEDS: traMADol 50 MG Tab PO PRN (08:46)
[2023-02-20] MEDS ORDERED: Insulin Glargine,Human Rec. Analog 100 Units/ML 3 ML Pen SUBCUT ONE (12:05)
[2023-02-20] MEDS ORDERED: Insulin Lispro 100 Unit/ML 3 ML KwikPen SUBCUT ONE (12:05)
[2023-02-20] MEDS: Indomethacin 25 MG Cap PO SCH (17:54)
[2023-02-20] MEDS: Cholecalciferol (Vitamin D3) 25 MCG Tab PO SCH (17:54)
[2023-02-20] MEDS: Losartan 25 MG Tab PO SCH (20:08)
[2023-02-20] MEDS: Rosuvastatin 20 MG Tab PO SCH (20:08)
[2023-02-21] MEDS: Levothyroxine 112 MCG Tab PO SCH (05:56)
[2023-02-21] MEDS: Pantoprazole 40 MG Tab.CR PO SCH (05:57)
[2023-02-21] MEDS: Indomethacin 25 MG Cap PO SCH ×3 (08:14→17:48)
[2023-02-21] MEDS: Isosorbide Mononitrate 30 MG Tab.ER PO SCH (08:15)
[2023-02-21] MEDS: Carvedilol 3.125 MG Tab PO SCH ×2 (08:15→20:22)
[2023-02-21] MEDS: Magnesium Oxide 400 MG Tab PO SCH (08:16)
[2023-02-21] MEDS: Furosemide 40 MG Tab PO SCH (08:16)
[2023-02-21] MEDS: Acetaminophen 500 MG Tab PO SCH ×3 (08:17→20:23)
[2023-02-21] MEDS: Clopidogrel 75 MG Tab PO SCH (08:17)
[2023-02-21] MEDS: Polyethylene Glycol 3350 Powder 17 GM Packet PO PRN (08:18)
[2023-02-21] MEDS: Vitamin B6-pyridOXINE 100 MG Tab PO SCH (08:18)
[2023-02-21] MEDS: traMADol 50 MG Tab PO PRN ×2 (08:18→17:33)
[2023-02-21] MEDS ORDERED: Glucagon,Human Recombinant 1 MG Vial IM PRN (08:26)
[2023-02-21] MEDS ORDERED: 50% Dextrose in Water 50 ML Syringe IVPUSH PRN (08:26)
[2023-02-21] MEDS: Insulin Lispro 100 Unit/ML 3 ML KwikPen SUBCUT SCH ×3 (08:49→17:34)
[2023-02-21] MEDS: Insulin Glargine,Human Rec. Analog 100 Units/ML 3 ML Pen SUBCUT SCH ×2 (08:49→20:24)
[2023-02-21] MEDS: Magnesium Hydroxide 400 MG/5 ML Susp 30 ML Cup PO PRN (12:09)
[2023-02-21] MEDS: Cholecalciferol (Vitamin D3) 25 MCG Tab PO SCH (17:34)
[2023-02-21] MEDS ORDERED: Sennosides 8.6 MG Tab PO PRN (18:11)
[2023-02-21] MEDS: Rosuvastatin 20 MG Tab PO SCH (20:22)
[2023-02-21] MEDS: Losartan 25 MG Tab PO SCH (20:22)
[2023-02-22] MEDS: Levothyroxine 112 MCG Tab PO SCH (06:40)
[2023-02-22] MEDS: Pantoprazole 40 MG Tab.CR PO SCH (06:41)
[2023-02-22] MEDS: Insulin Lispro 100 Unit/ML 3 ML KwikPen SUBCUT SCH ×3 (08:01→17:39)
[2023-02-22] MEDS: Insulin Glargine,Human Rec. Analog 100 Units/ML 3 ML Pen SUBCUT SCH ×2 (08:02→20:46)
[2023-02-22] MEDS: Indomethacin 25 MG Cap PO SCH ×3 (08:03→17:38)
[2023-02-22] MEDS: Carvedilol 3.125 MG Tab PO SCH ×2 (08:05→20:40)
[2023-02-22] MEDS: Magnesium Oxide 400 MG Tab PO SCH (08:06)
[2023-02-22] MEDS: Furosemide 40 MG Tab PO SCH (08:06)
[2023-02-22] MEDS: Isosorbide Mononitrate 30 MG Tab.ER PO SCH (08:06)
[2023-02-22] MEDS: Acetaminophen 500 MG Tab PO SCH ×3 (08:07→20:44)
[2023-02-22] MEDS: Vitamin B6-pyridOXINE 100 MG Tab PO SCH (08:07)
[2023-02-22] MEDS: Clopidogrel 75 MG Tab PO SCH (08:07)
[2023-02-22] MEDS: Polyethylene Glycol 3350 Powder 17 GM Packet PO SCH (08:17)
[2023-02-22] MEDS: traMADol 50 MG Tab PO PRN (08:17)
[2023-02-22] MEDS ORDERED: Lidocaine 2% HCl 6 ML Jel MM STA (13:11)
[2023-02-22] MEDS: Magnesium Hydroxide 400 MG/5 ML Susp 30 ML Cup PO PRN (15:27)
[2023-02-22] MEDS: Cholecalciferol (Vitamin D3) 25 MCG Tab PO SCH (17:38)
[2023-02-22] MEDS: Losartan 25 MG Tab PO SCH (20:43)
[2023-02-22] MEDS: Rosuvastatin 20 MG Tab PO SCH (20:44)
[2023-02-23] MEDS ORDERED: Sodium Phosphate,Monobasic/Sodium Phosphate,Dibasic Enema 133 ML Bottle RECTAL ONE (00:42)
[2023-02-23] MEDS ORDERED: Bisacodyl 5 MG Tab PO PRN (00:52)
[2023-02-23] MEDS: Pantoprazole 40 MG Tab.CR PO SCH (06:06)
[2023-02-23] MEDS: Levothyroxine 112 MCG Tab PO SCH (06:06)
[2023-02-23] MEDS: Vitamin B6-pyridOXINE 100 MG Tab PO SCH (08:55)
[2023-02-23] MEDS: Carvedilol 3.125 MG Tab PO SCH (08:55)
[2023-02-23] MEDS: Clopidogrel 75 MG Tab PO SCH (08:56)
[2023-02-23] MEDS: Isosorbide Mononitrate 30 MG Tab.ER PO SCH (08:56)
[2023-02-23] MEDS: Furosemide 40 MG Tab PO SCH (08:57)
[2023-02-23] MEDS: Acetaminophen 500 MG Tab PO SCH (08:58)
[2023-02-23] MEDS: Magnesium Oxide 400 MG Tab PO SCH (08:59)
[2023-02-23] MEDS: Indomethacin 25 MG Cap PO SCH ×2 (09:04→11:00)
[2023-02-23] MEDS: Polyethylene Glycol 3350 Powder 17 GM Packet PO SCH ×2 (09:05→09:09)
[2023-02-23] MEDS: Insulin Glargine,Human Rec. Analog 100 Units/ML 3 ML Pen SUBCUT SCH (09:11)
[2023-02-23] MEDS: Insulin Lispro 100 Unit/ML 3 ML KwikPen SUBCUT SCH ×2 (09:13→11:03)
[2023-02-23 16:26] VITALS: BP 147/63; PULSE 71
== END 2023-02-23 12:00 | disposition home health service (06) | DRG 560 ==
LOC: FB.MS 09:00
PROVIDERS: ADMIT Family Medicine; ATTEND Family Medicine
DX: S32.009D Unspecified fracture of unspecified lumbar vertebra, subsequent encounter for fracture with routine healing (principal); I13.0 Hypertensive heart and chronic kidney disease with heart failure and stage 1 through stage 4 chronic kidney disease, or unspecified chronic kidney disease; N18.4 Chronic kidney disease, stage 4 (severe); R53.1 Weakness; M25.571 Pain in right ankle and joints of right foot; I50.9 Heart failure, unspecified; R26.2 Difficulty in walking, not elsewhere classified; R13.12 Dysphagia, oropharyngeal phase; K59.09 Other constipation; E11.22 Type 2 diabetes mellitus with diabetic chronic kidney disease; E78.00 Pure hypercholesterolemia, unspecified; Z79.4 Long term (current) use of insulin; Z88.0 Allergy status to penicillin; Z88.8 Allergy status to other drugs, medicaments and biological substances; Z91.012 Allergy to eggs; Z79.899 Other long term (current) drug therapy; I25.2 Old myocardial infarction; Z95.5 Presence of coronary angioplasty implant and graft; Z79.01 Long term (current) use of anticoagulants; Z85.828 Personal history of other malignant neoplasm of skin; Z86.16 Personal history of COVID-19; Z90.49 Acquired absence of other specified parts of digestive tract; Z90.710 Acquired absence of both cervix and uterus; Z11.52 Encounter for screening for COVID-19; Z79.890 Hormone replacement therapy; Z79.82 Long term (current) use of aspirin
CPT/HCPCS: 36415; 71045; 73610-RT; 73700-RT; 80053; 82947; 83880; 84484; 84550; 85025; 85610; 85730; 92610-GN; 93005; 93010; 97110-GP; 97116-GP; 97140-GP; 97530-GO; 97530-GP; 97535-GO; 99305; 99309; 99316; A9270-GY; J1815; J1815-GY; J3301; J3490; J7030; U0002

== ENCOUNTER 2023-03-17 14:39 | Emergency (ER) | payer MEDICARE, OTHER ==
[2023-03-17 15:17] LABS: BASOPHILS ABSOLUTE AUTO 0.1 x10-3/uL (0.0-0.1); EOSINOPHILS ABSOLUTE AUTO 0.1 x10-3/uL (0.0-0.8); EOSINOPHILS PERCENT AUTO 1.5 % (0.6-8.1); HEMATOCRIT 34.6 % (34.2-48.2); HEMOGLOBIN 11.7 g/dL (11.4-15.5); LYMPHOCYTES ABSOLUTE AUTO 1.6 x10-3/uL (1.0-4.4); LYMPHOCYTES PERCENT AUTO 21.6 % (18.4-52.1); MEAN CORPUSCULAR HEMOGLOBIN 31.7 pg (23.9-33.9); MEAN CORPUSCULAR HGB CONC 33.9 g/dL (31.9-34.8); MEAN CORPUSCULAR VOLUME 93.6 fL (76.7-100.5); MEAN PLATELET VOLUME 9.2 fL (7.1-12.4); MONOCYTES ABSOLUTE AUTO 0.5 x10-3/uL (0.3-1.0); MONOCYTES PERCENT AUTO 7.6 % (4.4-15.7); NEUTROPHILS ABSOLUTE AUTO 4.9 x10-3/uL (1.5-6.3); NEUTROPHILS PERCENT AUTO 68.3 % (30.8-76.2); PLATELET COUNT,PLT 177 x10(3)uL (151-488); RED BLOOD CELL COUNT 3.69 x10(6)uL (3.60-5.20); RED CELL DISTRIBUTION WIDTH 14.8 % (12.3-16.5); WHITE BLOOD CELL COUNT,WBC 7.2 x10-3/uL (3.0-10.3)
[2023-03-17 15:26] LABS: A/G RATIO 0.9; ALANINE AMINOTRANSFERASE,ALT 39 U/L (12-36); ALBUMIN 3.4 g/dL (3.2-4.6); ALKALINE PHOSPHATASE 113 IU/L (56-112); ASPARTATE AMNIOTRANSFERASE,AST 18 IU/L (5-25); BILIRUBIN TOTAL 0.4 mg/dL (0.1-1.3); BLOOD UREA NITROGEN,BUN 31 mg/dL (7-18); BUN/CREATININE RATIO 15.5 (9-20); CALCIUM 9.9 mg/dL (8.6-10.2); CARBON DIOXIDE,CO2 31 mmol/L (21-32); CHLORIDE,CL 99 mmol/L (100-110); EST CRCL DRUG DOSING (CG) 18.87 mL/min; ESTIMATED GFR 25 mL/min (>60); GLUCOSE RANDOM 253 mg/dL (80-116); POTASSIUM,K 4.2 mmol/L (3.5-5.3); SODIUM,NA 136 mmol/L (135-145)
[2023-03-17 15:33] LABS: C-REACTIVE PROTEIN < 0.50 mg/dL (<0.50); PRO B-TYPE NATRIUR PEPT,BNPPRO 395 pg/mL (<=450); TROPONIN I 23.2 pg/mL (4.0-60.3)
[2023-03-17 15:59] LABS: APPEARANCE,URINE CLEAR (CLEAR); BACTERIA,URINE MODERATE (NS); BILIRUBIN,URINE NEGATIVE (NEGATIVE); COLOR,URINE YELLOW (YELLOW); GLUCOSE,URINE >1000 mg/dL (NORMAL); KETONES,URINE NEGATIVE (NEGATIVE); LEUKOCYTE ESTERASE,URINE LARGE (NEGATIVE); NITRITE,URINE NEGATIVE (NEGATIVE); OCCULT BLOOD,URINE NEGATIVE (NEGATIVE); PROTEIN,URINE NEGATIVE (NEGATIVE); RBC,URINE 0-5 (0-5); SQUAMOUS EPITHELIAL CELLS,UR FEW (NS,R,O); UROBILINOGEN,URINE NORMAL (NEGATIVE)
[2023-03-17] MEDS ORDERED: traMADol 50 MG Tab PO ONE (16:40)
[2023-03-17 17:00] VITALS: BP 109/63; PULSE 72
== END 2023-03-17 16:55 | disposition home or self-care (01) ==
LOC: FB.ED 14:39
DX: M17.0 Bilateral primary osteoarthritis of knee (principal); N39.0 Urinary tract infection, site not specified; N18.9 Chronic kidney disease, unspecified; I25.2 Old myocardial infarction; I11.0 Hypertensive heart disease with heart failure; I50.9 Heart failure, unspecified; E11.9 Type 2 diabetes mellitus without complications; E78.00 Pure hypercholesterolemia, unspecified; Z90.710 Acquired absence of both cervix and uterus; Z90.49 Acquired absence of other specified parts of digestive tract; Z86.16 Personal history of COVID-19; Z88.0 Allergy status to penicillin; Z88.8 Allergy status to other drugs, medicaments and biological substances; Z91.012 Allergy to eggs; Z79.899 Other long term (current) drug therapy; Z79.4 Long term (current) use of insulin
CPT/HCPCS: 36415; 80053; 81001; 83880; 84484; 85025; 86140; 87086; 93010; 99283; 99284; A9270-GY

== ENCOUNTER 2023-05-03 14:11 | Emergency (ER) | payer MEDICARE, OTHER ==
[2023-05-03] MEDS ORDERED: Sodium Chloride 0.9% 10 ML Syringe FLUSH PRN (14:25)
[2023-05-03] MEDS ORDERED: Nitroglycerin 0.4 MG Tab.SL SL ONE (14:27)
[2023-05-03] MEDS ORDERED: Aspirin 81 MG Tab.Chew PO ONE (14:27)
[2023-05-03 14:35] LABS: BASOPHILS ABSOLUTE AUTO 0.1 x10-3/uL (0.0-0.1); BASOPHILS PERCENT AUTO 1.3 % (0.2-1.5); EOSINOPHILS ABSOLUTE AUTO 0.2 x10-3/uL (0.0-0.8); EOSINOPHILS PERCENT AUTO 3.7 % (0.6-8.1); HEMATOCRIT 31.7 % (34.2-48.2); HEMOGLOBIN 10.7 g/dL (11.4-15.5); LYMPHOCYTES ABSOLUTE AUTO 1.9 x10-3/uL (1.0-4.4); LYMPHOCYTES PERCENT AUTO 30.2 % (18.4-52.1); MEAN CORPUSCULAR HEMOGLOBIN 32.2 pg (23.9-33.9); MEAN CORPUSCULAR HGB CONC 33.7 g/dL (31.9-34.8); MEAN CORPUSCULAR VOLUME 95.6 fL (76.7-100.5); MEAN PLATELET VOLUME 9.8 fL (7.1-12.4); MONOCYTES ABSOLUTE AUTO 0.5 x10-3/uL (0.3-1.0); MONOCYTES PERCENT AUTO 8.4 % (4.4-15.7); NEUTROPHILS ABSOLUTE AUTO 3.6 x10-3/uL (1.5-6.3); NEUTROPHILS PERCENT AUTO 56.4 % (30.8-76.2); PLATELET COUNT,PLT 181 x10(3)uL (151-488); RED BLOOD CELL COUNT 3.31 x10(6)uL (3.60-5.20); RED CELL DISTRIBUTION WIDTH 14.5 % (12.3-16.5); WHITE BLOOD CELL COUNT,WBC 6.3 x10-3/uL (3.0-10.3)
[2023-05-03 14:36] VITALS: PULSE 72
[2023-05-03 14:39] LABS: BLOOD UREA NITROGEN,BUN 17 mg/dL (7-18); BUN/CREATININE RATIO 13.1 (9-20); CALCIUM 9.3 mg/dL (8.6-10.2); CARBON DIOXIDE,CO2 29 mmol/L (21-32); CHLORIDE,CL 108 mmol/L (100-110); CREATININE 1.3 mg/dL (0.55-1.02); ESTIMATED GFR 42 mL/min (>60); GLUCOSE RANDOM 162 mg/dL (80-116); POTASSIUM,K 4.4 mmol/L (3.5-5.3); SODIUM,NA 141 mmol/L (135-145)
[2023-05-03 14:45] LABS: A/G RATIO 1.1; ALANINE AMINOTRANSFERASE,ALT 34 U/L (12-36); ALBUMIN 3.2 g/dL (3.2-4.6); ALKALINE PHOSPHATASE 82 IU/L (56-112); ASPARTATE AMNIOTRANSFERASE,AST 45 IU/L (5-25); BILIRUBIN TOTAL 0.4 mg/dL (0.1-1.3); PROTEIN TOTAL,TP 6.2 g/dL (6.0-8.0)
[2023-05-03 14:48] LABS: INR 1.04 (1.00-1.24); PROTHROMBIN TIME 10.7 sec (9.0-11.1)
[2023-05-03 14:49] VITALS: BP 145/67
[2023-05-03 14:49] LABS: TROPONIN I 10.5 pg/mL (4.0-60.3)
[2023-05-03 14:59] LABS: PTT,PARTIAL THROMBOPLSTIN TIME 23.8 SECONDS (24.4-33.2)
== END 2023-05-03 16:00 | disposition home or self-care (01) ==
LOC: FB.ED 14:11
DX: I13.0 Hypertensive heart and chronic kidney disease with heart failure and stage 1 through stage 4 chronic kidney disease, or unspecified chronic kidney disease (principal); N18.9 Chronic kidney disease, unspecified; I20.9 Angina pectoris, unspecified; I50.9 Heart failure, unspecified; E11.9 Type 2 diabetes mellitus without complications; E78.00 Pure hypercholesterolemia, unspecified; E03.9 Hypothyroidism, unspecified; Z86.16 Personal history of COVID-19; Z79.4 Long term (current) use of insulin; Z95.5 Presence of coronary angioplasty implant and graft; Z90.49 Acquired absence of other specified parts of digestive tract; Z90.710 Acquired absence of both cervix and uterus; Z91.012 Allergy to eggs; Z88.0 Allergy status to penicillin; Z88.8 Allergy status to other drugs, medicaments and biological substances
CPT/HCPCS: 36415; 71045; 80053; 83880; 84484; 85025; 85610; 85730; 93005; 99285; A9270; J3490; 93010; 99284

== ENCOUNTER 2024-05-11 07:44 | Inpatient (IN) | payer MEDICARE, OTHER ==
[2024-05-11] MEDS ORDERED: 50% Dextrose in Water 50 ML Syringe IVPUSH PRN (14:06)
[2024-05-11] MEDS ORDERED: Nitroglycerin 0.4 MG Tab.SL SL PRN (14:06)
[2024-05-11] MEDS ORDERED: Glucagon,Human Recombinant 1 MG Vial IM PRN (14:06)
[2024-05-11] MEDS ORDERED: Glucose Gel 15 GM in 37.5 GM Tube PO PRN (14:06)
[2024-05-11] MEDS ORDERED: Non-Formulary Medication 1 Each (Insulin Aspart [Novolog Flexpen] 100 UNIT/ML Insuln.Pen) SQ SCH (18:00)
[2024-05-11] MEDS: Insulin Lispro 100 Unit/ML 3 ML KwikPen SUBCUT SCH (18:02)
[2024-05-11] MEDS: Cholecalciferol (Vitamin D3) 25 MCG Tab PO SCH (18:04)
[2024-05-11] MEDS: Insulin Glargine,Human Rec. Analog 100 Units/ML 3 ML Pen SUBCUT SCH (21:27)
[2024-05-11] MEDS: Acetaminophen 500 MG Tab PO PRN (21:31)
[2024-05-11] MEDS: Losartan 25 MG Tab PO SCH (21:31)
[2024-05-11] MEDS: Rosuvastatin 20 MG Tab PO SCH (21:32)
[2024-05-11] MEDS: Isosorbide Mononitrate 30 MG Tab.ER PO SCH (21:32)
[2024-05-12] MEDS: Levothyroxine 112 MCG Tab PO SCH (05:28)
[2024-05-12] MEDS: Bisacodyl 10 MG Supp RECTAL PRN (06:27)
[2024-05-12] MEDS: Aspirin 81 MG Tab.EC PO SCH (09:18)
[2024-05-12] MEDS: Cyanocobalamin (Vitamin B12) 500 MCG Tab PO SCH (09:20)
[2024-05-12] MEDS: amLODIPine 5 MG Tab PO SCH (09:20)
[2024-05-12] MEDS: Empagliflozin 25 MG Tab PO SCH (09:20)
[2024-05-12] MEDS: Magnesium Oxide 400 MG Tab PO SCH (09:20)
[2024-05-12] MEDS: Vitamin B6-pyridOXINE 100 MG Tab PO SCH (09:21)
[2024-05-12] MEDS: traMADol 50 MG Tab PO PRN (09:28)
[2024-05-12] MEDS: Insulin Lispro 100 Unit/ML 3 ML KwikPen SUBCUT SCH (11:56)
[2024-05-13] MEDS: Polyethylene Glycol 3350 Powder 17 GM Packet PO PRN (17:45)
[2024-05-16 21:41] LABS: BILIRUBIN,URINE NEGATIVE (NEGATIVE); GLUCOSE,URINE >1000 mg/dL (NORMAL); KETONES,URINE NEGATIVE (NEGATIVE); LEUKOCYTE ESTERASE,URINE NEGATIVE (NEGATIVE); NITRITE,URINE NEGATIVE (NEGATIVE); OCCULT BLOOD,URINE MODERATE (NEGATIVE); PROTEIN,URINE NEGATIVE (NEGATIVE); UROBILINOGEN,URINE NORMAL (NEGATIVE)
[2024-05-16 21:46] LABS: APPEARANCE,URINE SLIGHTLY CLOUDY (CLEAR); BACTERIA,URINE FEW (NS); COLOR,URINE YELLOW (YELLOW); MUCUS,URINE OCCASIONAL (NS); RBC,URINE 0-5 (0-5); SQUAMOUS EPITHELIAL CELLS,UR FEW (NS,R,O); WBC,URINE 0-5 (0-5)
[2024-05-18] MEDS: Cefdinir 300 MG Cap PO SCH (12:20)
[2024-05-18 14:00] VITALS: BP 131/50; PULSE 89
== END 2024-05-18 14:15 | disposition home health service (06) | DRG 948 ==
LOC: FB.MS 12:04
PROVIDERS: ADMIT Family Medicine; ATTEND Internal Medicine
DX: R53.1 Weakness (principal); I25.110 Atherosclerotic heart disease of native coronary artery with unstable angina pectoris; E11.22 Type 2 diabetes mellitus with diabetic chronic kidney disease; D63.1 Anemia in chronic kidney disease; I12.9 Hypertensive chronic kidney disease with stage 1 through stage 4 chronic kidney disease, or unspecified chronic kidney disease; E78.00 Pure hypercholesterolemia, unspecified; E03.9 Hypothyroidism, unspecified; H54.7 Unspecified visual loss; G89.29 Other chronic pain; M81.0 Age-related osteoporosis without current pathological fracture; H26.9 Unspecified cataract; F15.90 Other stimulant use, unspecified, uncomplicated; N18.32 Chronic kidney disease, stage 3b; E66.812 Obesity, class 2; Z68.34 Body mass index [BMI] 34.0-34.9, adult; Z88.0 Allergy status to penicillin; Z91.012 Allergy to eggs; Z79.899 Other long term (current) drug therapy; Z79.1 Long term (current) use of non-steroidal anti-inflammatories (NSAID); Z79.4 Long term (current) use of insulin; Z79.82 Long term (current) use of aspirin; Z88.8 Allergy status to other drugs, medicaments and biological substances; Z95.5 Presence of coronary angioplasty implant and graft; Z95.0 Presence of cardiac pacemaker; Z86.16 Personal history of COVID-19; Z90.49 Acquired absence of other specified parts of digestive tract; Z90.710 Acquired absence of both cervix and uterus
CPT/HCPCS: 81001; 82947; 87086; 87088; 97110-GO; 97110-GP; 97161-GP; 97165-GO; 97530-GO; 97530-GP; 97535-GO; 99305; 99315; A9270-GY; J1815; J1815-GY

== ENCOUNTER 2024-06-02 00:01 | Emergency (ER) | payer MEDICARE, OTHER ==
[2024-06-02 00:51] LABS: BASOPHILS PERCENT AUTO 0.3 % (0.2-1.5); EOSINOPHILS ABSOLUTE AUTO 0.5 x10-3/uL (0.0-0.8); EOSINOPHILS PERCENT AUTO 8.3 % (0.6-8.1); HEMATOCRIT 33.3 % (34.2-48.2); HEMOGLOBIN 11.3 g/dL (11.4-15.5); LYMPHOCYTES ABSOLUTE AUTO 2.2 x10-3/uL (1.0-4.4); LYMPHOCYTES PERCENT AUTO 37.8 % (18.4-52.1); MEAN CORPUSCULAR HEMOGLOBIN 31.5 pg (23.9-33.9); MEAN CORPUSCULAR HGB CONC 33.9 g/dL (31.9-34.8); MEAN CORPUSCULAR VOLUME 92.7 fL (76.7-100.5); MEAN PLATELET VOLUME 9.6 fL (7.1-12.4); MONOCYTES ABSOLUTE AUTO 0.6 x10-3/uL (0.3-1.0); MONOCYTES PERCENT AUTO 9.3 % (4.4-15.7); NEUTROPHILS ABSOLUTE AUTO 2.6 x10-3/uL (1.5-6.3); NEUTROPHILS PERCENT AUTO 44.3 % (30.8-76.2); PLATELET COUNT,PLT 143 x10(3)uL (151-488); RED CELL DISTRIBUTION WIDTH 13.5 % (12.3-16.5); WHITE BLOOD CELL COUNT,WBC 5.9 x10-3/uL (3.0-10.3)
[2024-06-02 00:58] LABS: A/G RATIO 0.9; ALANINE AMINOTRANSFERASE,ALT 22 U/L (12-36); ALBUMIN 3.2 g/dL (3.2-4.6); ALKALINE PHOSPHATASE 74 IU/L (56-112); ASPARTATE AMNIOTRANSFERASE,AST 25 IU/L (5-25); BILIRUBIN TOTAL 0.4 mg/dL (0.1-1.3); BLOOD UREA NITROGEN,BUN 27 mg/dL (7-18); BUN/CREATININE RATIO 12.9 (9-20); CALCIUM 9.7 mg/dL (8.6-10.2); CARBON DIOXIDE,CO2 28 mmol/L (21-32); CHLORIDE,CL 105 mmol/L (100-110); ESTIMATED GFR 23 mL/min (>60); GLUCOSE RANDOM 139 mg/dL (80-116); POTASSIUM,K 4.2 mmol/L (3.5-5.3); PROTEIN TOTAL,TP 6.6 g/dL (6.0-8.0); SODIUM,NA 141 mmol/L (135-145)
[2024-06-02 01:00] LABS: CREATININE 2.1 mg/dL (0.55-1.02)
[2024-06-02] MEDS: Lidocaine/Epineph/Tetracaine 3 ML Syringe TOP ONE (01:20)
[2024-06-02 02:08] VITALS: BP 133/60; PULSE 80
[2024-06-02] MEDS: traMADol 50 MG Tab PO STA (02:26)
[2024-06-02] MEDS: Acetaminophen 500 MG Tab PO ONE (02:27)
== END 2024-06-02 02:45 | disposition home or self-care (01) ==
LOC: FB.ED 00:01
DX: R07.89 Other chest pain (principal); I25.10 Atherosclerotic heart disease of native coronary artery without angina pectoris; I12.9 Hypertensive chronic kidney disease with stage 1 through stage 4 chronic kidney disease, or unspecified chronic kidney disease; N18.30 Chronic kidney disease, stage 3 unspecified; E78.00 Pure hypercholesterolemia, unspecified; E11.22 Type 2 diabetes mellitus with diabetic chronic kidney disease; E11.42 Type 2 diabetes mellitus with diabetic polyneuropathy; E03.9 Hypothyroidism, unspecified; Z86.16 Personal history of COVID-19; Z90.49 Acquired absence of other specified parts of digestive tract; Z90.710 Acquired absence of both cervix and uterus; Z88.0 Allergy status to penicillin; Z88.8 Allergy status to other drugs, medicaments and biological substances; Z91.012 Allergy to eggs; Z79.4 Long term (current) use of insulin; Z79.82 Long term (current) use of aspirin; Z79.890 Hormone replacement therapy; Z79.899 Other long term (current) drug therapy
CPT/HCPCS: 36415; 71045; 80053; 84484; 85025; 93010; 99284; 99285; A9270